=== PATIENT | male | born 1990 | race African-American/Black ===

== ENCOUNTER 2018-07-04 10:02 | Emergency (ER) | payer MEDICAID ==
[~2018-07-04] VITALS: Ht 180.3 cm; Wt 68.3 kg
[2018-07-04 10:14] VITALS: BP 120/59
== END 2018-07-04 12:00 | disposition left against medical advice (07) ==
LOC: ER 10:27
DX: Z53.21 Procedure and treatment not carried out due to patient leaving prior to being seen by health care provider (principal)

== ENCOUNTER 2018-09-06 03:20 | Emergency (ER) | payer MEDICAID ==
[~2018-09-06] VITALS: Ht 182.9 cm; Wt 73.0 kg
[2018-09-06] MEDS ORDERED: IBUPROFEN 600MG TABLET PO ONE (04:45)
[2018-09-06] MEDS ORDERED: IBUPROFEN 600MG TABLET PO NR (05:00)
[2018-09-06 06:11] VITALS: BP 125/68
== END 2018-09-06 06:12 | disposition home or self-care (01) ==
LOC: ER 03:20
DX: M79.641 Pain in right hand (principal); M25.521 Pain in right elbow; F12.10 Cannabis abuse, uncomplicated; W13.2XXA Fall from, out of or through roof, initial encounter; Y93.89 Activity, other specified; Y92.89 Other specified places as the place of occurrence of the external cause; Y99.8 Other external cause status; Z98.890 Other specified postprocedural states
CPT/HCPCS: 72100; 73080; 73130; 99284